=== PATIENT | female | born 1955 | race Caucasian/White ===

== ENCOUNTER 2018-12-14 06:39 | Day surgery (SDC) | payer MEDICARE ==
[2018-12-14] MEDS ORDERED: Acetaminophen 500 MG Tab PO ONE (06:45)
[2018-12-14] MEDS ORDERED: Bupivacaine 0.5%/EPINEPHrine 1:200,000 50 ML MDV ONE (06:54)
[2018-12-14] MEDS ORDERED: Meropenem 500 MG SDV ONE (06:54)
[2018-12-14] MEDS ORDERED: Propofol 200 MG/20 ML SDV ONE (07:06)
[2018-12-14] MEDS ORDERED: Neostigmine Methylsulfate 1 MG/ML 5 ML Syringe ONE (07:06)
[2018-12-14] MEDS ORDERED: Ondansetron 4 MG/2 ML SDV ONE (07:06)
[2018-12-14] MEDS ORDERED: Dexamethasone 4 MG/ML SDV ONE (07:06)
[2018-12-14] MEDS ORDERED: Glycopyrrolate 0.2 MG/ML 5 ML MDV ONE (07:06)
[2018-12-14] MEDS ORDERED: Rocuronium 50 MG/5 ML Vial ONE (07:06)
[2018-12-14] MEDS ORDERED: fentaNYL 250 MCG/5 ML SDV ONE (07:06)
[2018-12-14] MEDS ORDERED: Midazolam 1 MG/ML 2 ML SDV ONE (07:16)
[2018-12-14] MEDS: Dextrose 5%-Lactated Ringers 1,000 ML IV SCH ×3 (08:11→20:22)
[2018-12-14] MEDS ORDERED: cefOXitin 2 GM in Sodium Chloride 0.9% 50 ML IV ONE (08:15)
[2018-12-14] MEDS ORDERED: HYDROmorphone 1 MG/ML Syringe IV PRN (11:23)
[2018-12-14] MEDS ORDERED: Ondansetron 4 MG/2 ML SDV IVPUSH PRN (11:23)
[2018-12-14] MEDS ORDERED: HYDROmorphone 0.5 MG/0.5 ML Syringe IVPUSH PRN (11:23)
[2018-12-14] MEDS: Acetaminophen 325 MG Tab PO SCH ×2 (13:37→20:10)
[2018-12-14] MEDS: risperiDONE 0.5 MG Tab PO SCH ×2 (13:37→20:11)
[2018-12-14] MEDS: HYDROmorphone 2 MG Tab PO PRN ×2 (13:44→20:28)
[2018-12-14] MEDS: ceFAZolin 2 GM in Sodium Chloride 0.9% 50 ML IV SCH ×2 (13:45→22:00)
[2018-12-14] MEDS ORDERED: Topiramate 25 MG Tab PO SCH (14:00)
[2018-12-14] MEDS: Polyethylene Glycol 3350 Powder 17 GM Packet PO SCH (14:52)
[2018-12-14] MEDS ORDERED: Tamsulosin 0.4 MG Cap.ER PO ONE (15:46)
[2018-12-14] MEDS ORDERED: Polyethylene Glycol 3350 Powder 17 GM Packet PO SCH (17:00)
[2018-12-14] MEDS ORDERED: Magnesium Hydroxide 400 MG/5 ML Susp 30 ML Cup PO PRN (19:24)
[2018-12-14] MEDS ORDERED: Bisacodyl 5 MG Tab PO PRN (19:26)
[2018-12-14] MEDS ORDERED: Tamsulosin 0.4 MG Cap.ER PO SCH (21:00)
[2018-12-14] MEDS ORDERED: Topiramate 25 MG Tab PO ONE (21:00)
[2018-12-15] MEDS: Acetaminophen 325 MG Tab PO SCH ×2 (02:37→07:39)
[2018-12-15] MEDS: HYDROmorphone 2 MG Tab PO PRN ×2 (02:41→09:46)
[2018-12-15] MEDS: ceFAZolin 2 GM in Sodium Chloride 0.9% 50 ML IV SCH (05:29)
[2018-12-15] MEDS: Dextrose 5%-Lactated Ringers 1,000 ML IV SCH (08:12)
[2018-12-15] MEDS ORDERED: Aspirin 81 MG Tab.EC PO SCH (09:00)
[2018-12-15] MEDS ORDERED: Topiramate 100 MG Tab PO SCH (09:00)
[2018-12-15] MEDS ORDERED: Magnesium Hydroxide 400 MG/5 ML Susp 30 ML Cup PO ONE (09:15)
[2018-12-15] MEDS: risperiDONE 0.5 MG Tab PO SCH (09:21)
[2018-12-15] MEDS: Polyethylene Glycol 3350 Powder 17 GM Packet PO SCH (09:33)
--- NOTE | 2018-12-15 09:58 | DISCH ---
ADMISSION DIAGNOSIS: Incarcerated incisional hernia. DISCHARGE DIAGNOSES: Diagnostic laparoscopy with lysis of adhesions. 1. Repair of incarcerated incisional hernia with mesh. 2. Placement of Interceed mesh x2 for incarcerated incisional hernia, risk of adhesions to mesh located into the pelvis. Date of surgery: 12/14/2018. Surgeon: Teofilo Verdugo MD. HISTORY: Pastora Esquivel is a 63-year-old female with incarcerated incisional hernia. After preoperative evaluation and discussion of possible risks and possible complications, she wished to proceed with surgical procedure. HOSPITAL COURSE: Pastora had no operative complications. On the evening of operative day, she had urinary retention. A Presley catheter was placed and then discontinued at 5 a.m. She did void a small amount. A UA was checked and she was able to be discharged to home with the care of her . PHYSICAL EXAMINATION: Deferred. The patient has marked agitation. VITAL SIGNS: 97.5, 74, 18, blood pressure 134/76. DISPOSITION: Discharged to home, care of . CONDITION: Good. HOME MEDICATIONS: 1. Dilaudid 2 mg q.6 hours p.r.n. pain, #28. 2. She is to continue home medication of MiraLax 17 g daily. 3. Taiban-3 1000 mg daily. 4. Multivitamin one daily. 5. Calcium D3 one daily. 6. Dulcolax tablet 5 mg oral daily. 7. Aspirin 81 mg daily. 8. Risperdal 0.5 mg b.i.d. 9. Topiramate 100 mg p.o. daily. 10.Milk of magnesia 30 mL p.o. q.8 hours p.r.n. constipation. Six doses were sent home with the patient. 11.Tylenol 650 mg q.6 hours. FOLLOWUP: Appointment with Linh Simental PA-C, on 12/23/2018 at 9 a.m. DIET: Usual diet as tolerated. Drink 8 to 10 glasses of water a day. ACTIVITY: As tolerated. No lifting greater than 10 pounds for 6 weeks. Shower/bathing; may shower. Keep operative site clean and dry. Wear abdominal binder with pressure dressing over hernia site for 4 weeks. DISCHARGE INSTRUCTIONS: Notify provider if any fever, increased pain, nausea, vomiting. Use incentive spirometer 10 times every hour while awake for 1 week.
--- NOTE | 2018-12-24 10:38 | OR ---
DATE OF PROCEDURE: 12/14/2018 SURGEON: Teofilo Verdugo MD PREOPERATIVE DIAGNOSIS: Recurrent incisional hernia. POSTOPERATIVE DIAGNOSES: 1. Recurrent incarcerated incisional hernia. 2. Extensive intraabdominal adhesions. OPERATIVE PROCEDURES: Diagnostic laparoscopy with lysis of extensive adhesions and, 1. Repair of recurrent incarcerated incisional hernia with mesh (23835). 2. Placement of Interceed mesh x2 to limit recurrent adhesion formation between pelvic and abdominal wall and underlying viscera (25849). ANESTHESIA: General. INDICATION FOR PROCEDURE: A 63-year-old presenting with recurrent hernia. This is located in the somewhat supraumbilical area to the right of the midline. The patient had previous mesh repair more in midline, and I suspect we are dealing with a recurrent hernia lateral to that. The plan is to proceed with diagnostic laparoscopy, laparotomy if necessary, and repair of the hernia with mesh. Potential risks including bleeding, infection, injury to underlying viscera, problems with mesh becoming infected or the hernia recurring were all reviewed, and the patient wishes to proceed. DETAILS OF PROCEDURE: The patient was taken to the operating room and placed in a supine position. After general endotracheal anesthesia was induced, a Presley catheter was inserted and the abdomen prepped and draped. In the right lateral abdomen, a transverse incision was made. The peritoneal cavity was entered under direct vision with an Optiview trocar and inflated to 15 mmHg pressure with CO2. Laparoscope was then reinserted. No underlying trocar insertion site injuries were seen. There were quite extensive adhesions in the area of the hernia and the previously- placed mesh. Initially, two 5 mm trocars were placed in the right abdomen, one in the upper abdomen and one in the lower abdomen, and at that point, a fairly extensive adhesiolysis was undertaken. This was in combination with sharp and Harmonic scalpel dissection and depending on the proximity to the underlying small bowel. Once these adhesions were taken down which included some incarcerated omentum and small bowel, the hernia which located just to the right of the previous repair was taken down. The area was inspected. No additional abnormalities were noted. Bilateral transversus abdominis plane blocks were then placed. Of note, after entering the abdomen, we did place a clip across the ventriculoperitoneal shunt to limit possible migration of CO2 retrograde in the shunt. This was removed at the conclusion of the procedure. After dissection had been completed, 20.[address] mesh was selected. This was soaked in antibiotic-containing saline solution, and through a stab wound over the direct center of the hernia, a balloon catheter was placed after the mesh had been placed in an intraperitoneal location. The balloon was then inflated, thus pushing the mesh up against the abdominal wall which was then fixed circumferentially with some absorbable tacking screws. The balloon was then deflated and withdrawn. Good fixation and coverage around the hernia were confirmed. To limit recurrent adhesion formation, 2 Interceed meshes were placed beginning in the area underlying the pelvis and up against the abdominal wall including both areas of mesh placement to limit recurrent adhesion formation. Trocars were then sequentially removed and the peritoneal cavity deflated. The incision was closed with some 4-0 Vicryl skin stitch. The 12 mm trocar site was also closed at the fascia with 0 Vicryl stitch. The patient was taken to the recovery room in satisfactory condition. Teofilo Verdugo MD /[id number]
== END 2018-12-15 10:28 | disposition home or self-care (01) ==
LOC: JP.SDS 06:39 → JP.MS 09:40 → JP.SDS 12-15 10:28
PROVIDERS: ATTEND Surgery
DX: K43.2 Incisional hernia without obstruction or gangrene (principal); Z88.5 Allergy status to narcotic agent; Z79.899 Other long term (current) drug therapy; Z79.82 Long term (current) use of aspirin
CPT/HCPCS: 51702; 81001; 88302; 94667; 94762; A9270-GY; C1713; C1781; J0171; J0690; J0694; J1100; J2020; J2185; J2250; J2405; J2704; J2710; J2795; J3010; J3490; J7042; J7050

== ENCOUNTER 2019-02-03 06:34 | Day surgery (SDC) | payer MEDICARE ==
[2019-02-03] MEDS ORDERED: Dextrose 5%-Lactated Ringers 1,000 ML IV SCH (07:00)
[2019-02-03] MEDS ORDERED: Propofol 200 MG/20 ML SDV ONE (07:33)
[2019-02-03] MEDS ORDERED: Midazolam 1 MG/ML 2 ML SDV ONE (07:33)
[2019-02-03] MEDS ORDERED: fentaNYL 100 MCG/2 ML SDV ONE (07:33)
--- NOTE | 2019-02-05 12:39 | OR ---
DATE OF PROCEDURE: 02/03/2019 SURGEON: Teofilo Verdugo MD PREOPERATIVE DIAGNOSIS: Abdominal bloating and chronic constipation. POSTOPERATIVE DIAGNOSES: 1. Abdominal bloating and chronic constipation. 2. Sigmoid colon diverticulosis. 3. Single polyp in mid sigmoid colon. 4. Tortuous sigmoid colon preventing scope passage beyond the mid sigmoid colon. OPERATIVE PROCEDURE: Flexible sigmoidoscopy with polypectomy by snare technique. ANESTHESIA: IV sedation. INDICATIONS FOR PROCEDURE: A 63-year-old presenting with complaints of constipation and crampy abdominal pain. She is also otherwise a candidate for screening colonoscopy. Potential risks of the procedure were reviewed with the patient's , and he wishes to proceed. Of note, the patient has a severe head injury, so most of the communication and consents were obtained via the . DETAILS OF PROCEDURE: The patient was taken to the operating room and placed in a left lateral decubitus position. IV sedation was administered, after which the initial digital rectal exam was performed and was unremarkable. Colonoscope was passed into the rectum with retroflexion revealing uncomplicated hemorrhoidal columns. The scope was then eventually passed through the level of the mid sigmoid colon with the external monitoring device showing the course of the colon. It was noted that the patient had essentially a 180-degree turn in the sigmoid colon. As we passed up to the mid sigmoid colon, the scope could not be safely passed more proximal to that due to that redundancy and sharp angulation of sigmoid colon. To that level, the patient was noted to have somewhat complicated diverticulosis. A single small polyp measuring around 3 mm was identified, and this was excised by means of the polypectomy snare and the specimen delivered from the field for histologic evaluation. The scope was then withdrawn and the procedure was then concluded. Plan will be to obtain a barium enema x-ray on the patient next week to evaluate the remainder of the colon. Additionally, the patient has had problems with multiple recurrent urinary tract infections. This has to be probably with some problems with the head injury in terms of her sympathetic and parasympathetic nerve function. Given this, we will start the patient on Septra DS 1 to 2 a day as prophylaxis similar to what one temporarily uses on a penitentiary patient with an indwelling Presley catheter. With regard to the chronic constipation, we will restart her Senna Plus 2 tablets daily and then use MiraLax hopefully somewhat less frequently for a controlled constipation. We will touch base with the patient's after the barium enema x-ray on Thursday, and I will see the patient back in 1 month for recheck. Teofilo Verdugo MD /[id number]
== END 2019-02-03 10:10 | disposition home or self-care (01) ==
LOC: JP.SDS 06:34
PROVIDERS: ATTEND Surgery
DX: K57.30 Diverticulosis of large intestine without perforation or abscess without bleeding (principal); K63.5 Polyp of colon; Q43.8 Other specified congenital malformations of intestine; K64.9 Unspecified hemorrhoids; Z88.5 Allergy status to narcotic agent
CPT/HCPCS: 45385; J2250; J2704; J3010; J7121

== ENCOUNTER 2020-08-28 06:33 | Day surgery (SDC) | payer MEDICARE ==
[2020-08-28] MEDS ORDERED: Sodium Chloride 0.9% 1,000 ML IV SCH (07:00)
[2020-08-28] MEDS ORDERED: fentaNYL 100 MCG/2 ML SDV ONE (07:08)
[2020-08-28] MEDS ORDERED: Propofol 200 MG/20 ML SDV ONE (07:08)
[2020-08-28] MEDS ORDERED: Midazolam 1 MG/ML 2 ML SDV ONE (07:09)
--- NOTE | 2020-08-28 09:44 | OR ---
DATE OF PROCEDURE: 08/28/2020 SURGEON: Raimundo Dia MD PROCEDURE: Esophagogastroduodenoscopy. FINDINGS: Normal esophagogastroduodenoscopy. COMPLICATIONS: None. ETHICS INSTRUCTOR: None. ANESTHESIA: MAC. PREOPERATIVE DIAGNOSIS: Dysphagia. POSTOPERATIVE DIAGNOSIS: Dysphagia. RISKS: Risks, benefits, alternatives, and limitations including but not limited to infection, bleeding, perforation, false positives, and false negatives were explained to the patient who wished to proceed. PROCEDURE IN DETAIL: The patient was placed in left lateral decubitus position. The EGD scope was introduced and advanced atraumatically to the second part of the duodenum. No evidence of duodenitis or ulceration. No old or new blood. Within the stomach itself, there was no gastritis or ulceration. GE junction was normal. No hiatal hernia. The esophagus was inspected without abnormality. The patient tolerated the procedure well. The patient has been referred to Speech Therapy/Speech Pathology. Raimundo Dia MD /[id number]
== END 2020-08-28 10:58 | disposition home or self-care (01) ==
LOC: JP.SDS 06:33
PROVIDERS: ATTEND Surgery
DX: R13.10 Dysphagia, unspecified (principal); Z88.6 Allergy status to analgesic agent; Z88.8 Allergy status to other drugs, medicaments and biological substances
CPT/HCPCS: J2250; J2704; J3010; J7030